=== PATIENT | male | born 1980 | race Hispanic/Latino ===

== ENCOUNTER 2020-08-02 23:05 | Emergency (ER) | payer BC ==
[~2020-08-02] VITALS: Ht 177.8 cm; Wt 138.3 kg
[2020-08-02] MEDS ORDERED: ONDANSETRON HCL INJ 2MG/ML 2ML 2 MG/ML VIAL ONE (23:39)
[2020-08-02] MEDS ORDERED: KETOROLAC TROMETHAMINE 30 MG/ML VIAL ONE (23:39)
[2020-08-02] MEDS: KETOROLAC TROMETHAMINE 30 MG/ML VIAL IV STA (23:56)
[2020-08-02] MEDS: ONDANSETRON HCL INJ 2MG/ML 2ML 2 MG/ML VIAL IV STA (23:56)
[2020-08-03] MEDS: MORPHINE SULFATE INJ 4 MG/ML INJ 1ML IV STA (00:02)
[2020-08-03 00:08] LABS: BASOPHILS # (AUTO) 0.1 (0.0-0.1); EOSINOPHILS # (AUTO) 0.2 (0.0-0.4); EOSINOPHILS % 2.7 % (0.0-6.0); HEMATOCRIT 44.3 % (38.2-49.6); HEMOGLOBIN 14.9 g/dL (14.0-18.0); LYMPHOCYTES # (AUTO) 2.2 (1.0-3.2); LYMPHOCYTES % 23.9 % (18.0-39.1); MEAN CORPUSCULAR HEMOGLOBIN 28.5 pg (28-32); MEAN CORPUSCULAR HGB CONC 33.6 g/dL (31-35); MEAN CORPUSCULAR VOLUME 84.7 fL (81-99); MONOCYTES # (AUTO) 0.6 (0.2-0.8); MONOCYTES % 6.7 % (4.4-11.3); NEUTROPHILS # (AUTO) 5.9 (2.1-6.9); NEUTROPHILS % 65.4 % (38.7-80.0); PLATELET COUNT 264 x10e3/uL (140-360); RED BLOOD COUNT 5.23 x10e6/uL (4.3-5.7); RED CELL DISTRIBUTION WIDTH 13.2 % (11.7-14.4)
[2020-08-03 00:25] LABS: ANION GAP 15.5 mmol/L (8-16); CALCIUM 9.6 mg/dL (8.4-10.2); CREATININE, SERUM 1.02 mg/dL (0.72-1.25); POTASSIUM 4.5 mmol/L (3.5-5.1)
[2020-08-03 00:26] LABS: CLARITY,URINE CLEAR (CLEAR); COLOR,URINE YELLOW (YELLOW); KETONES,URINE NEGATIVE (NEGATIVE); LEUKOCYTE ESTERASE ,URINE NEGATIVE (NEGATIVE); NITRITE,URINE NEGATIVE (NEGATIVE); PROTEIN,URINE DIPSTICK NEGATIVE (NEGATIVE); URINE UROBILINOGEN 0.2 mg/dL (0.2 - 1)
[2020-08-03 00:39] LABS: BACTERIA,URINE FEW /HPF; EPITHELIAL CELLS,URINE FEW /LPF; RBC,URINE 21-50 /HPF (0-5); WBC,URINE (MAN) 0-5 /HPF (0-5)
[2020-08-03] MEDS ORDERED: KETOROLAC TROME10 MG PO (00:52)
[2020-08-03] MEDS ORDERED: ONDANSETRON ODT4 MG PO (00:52)
[2020-08-03] MEDS ORDERED: FLOMAX0.4 MG PO (00:52)
[2020-08-03] MEDS ORDERED: HYDROCODON-ACE1 EAC9 PO (00:52)
== END 2020-08-03 00:55 | disposition home or self-care (01) ==
LOC: ER 23:45
DX: M54.5 Low back pain (principal); R10.32 Left lower quadrant pain; N20.0 Calculus of kidney
CPT/HCPCS: 36415; 74176; 80048; 81001; 85025; 99283; J1885; J2270; J2405

== ENCOUNTER 2021-02-06 23:49 | Emergency (ER) | payer BC ==
[~2021-02-06] VITALS: Ht 177.8 cm; Wt 138.3 kg
[~2021-02-06 23:49] MED LIST: FLOMAX0.4 MG PO; HYDROCODON-ACE1 EAC9 PO; KETOROLAC TROME10 MG PO; ONDANSETRON ODT4 MG PO
[2021-02-06] MEDS ORDERED: KETOROLAC TROMETHAMINE 30 MG/ML VIAL IV STA (23:55)
[2021-02-06] MEDS ORDERED: SODIUM CHLORIDE 0.9% 1000ML 1,000 ML IV STA (23:55)
[2021-02-07 00:24] LABS: BASOPHILS # (AUTO) 0.1 (0.0-0.1); EOSINOPHILS # (AUTO) 0.5 (0.0-0.4); EOSINOPHILS % 4.8 % (0.0-6.0); HEMOGLOBIN 14.7 g/dL (14.0-18.0); LYMPHOCYTES % 31.8 % (18.0-39.1); MEAN CORPUSCULAR HEMOGLOBIN 28.5 pg (28-32); MEAN CORPUSCULAR HGB CONC 32.7 g/dL (31-35); MEAN CORPUSCULAR VOLUME 87.2 fL (81-99); MONOCYTES # (AUTO) 0.8 (0.2-0.8); NEUTROPHILS # (AUTO) 5.1 (2.1-6.9); NEUTROPHILS % 54.1 % (38.7-80.0); PLATELET COUNT 259 x10e3/uL (140-360); RED BLOOD COUNT 5.16 x10e6/uL (4.3-5.7); RED CELL DISTRIBUTION WIDTH 13.3 % (11.7-14.4)
[2021-02-07 00:26] LABS: CLARITY,URINE CLEAR (CLEAR); COLOR,URINE YELLOW (YELLOW); KETONES,URINE NEGATIVE (NEGATIVE); LEUKOCYTE ESTERASE ,URINE NEGATIVE (NEGATIVE); NITRITE,URINE NEGATIVE (NEGATIVE); PROTEIN,URINE DIPSTICK 1+ (NEGATIVE); URINE UROBILINOGEN 0.2 mg/dL (0.2 - 1)
[2021-02-07 00:34] LABS: AMORPHOUS SEDIMENT,URINE FEW (FEW); BACTERIA,URINE FEW /HPF; EPITHELIAL CELLS,URINE RARE /LPF; WBC,URINE (MAN) 0-5 /HPF (0-5)
[2021-02-07 00:43] LABS: ALBUMIN 4.1 g/dL (3.5-5.0); ALBUMIN/GLOBULIN RATIO 1.1 (0.8-2.0); ANION GAP 15.7 mmol/L (8-16); CALCIUM 9.7 mg/dL (8.4-10.2); CREATININE, SERUM 1.08 mg/dL (0.72-1.25); POTASSIUM 3.7 mmol/L (3.5-5.1)
[2021-02-07] MEDS ORDERED: IBUPROFEN600 MG PO (01:27)
[2021-02-07] MEDS ORDERED: FLOMAX0.4 MG PO (01:27)
[2021-02-07] MEDS ORDERED: Morphine 4mg Syringe 4 MG/ML INJ IV ONE (01:45)
[2021-02-07 03:28] VITALS: BP 158/98
[2021-02-07] MEDS ORDERED: Morphine 4mg Syringe 4 MG/ML INJ IM ONE (03:45)
== END 2021-02-07 04:16 | disposition home or self-care (01) ==
LOC: ER 23:54
DX: R10.31 Right lower quadrant pain (principal); N13.2 Hydronephrosis with renal and ureteral calculous obstruction; R50.9 Fever, unspecified
CPT/HCPCS: 36415; 74176; 80053; 81001; 85025; 99284; J1885; J2270; J7030